=== PATIENT | male | born 1995 | race Hispanic/Latino ===

== ENCOUNTER 2019-07-04 19:16 | Emergency (ER) | payer BC, OTHER ==
[2019-07-04 20:56] LABS: Absolute Lymphocytes (CBC) 3.2 K/uL (0.7-4.9); Basophils % 0.3 % (0-1.3); Hematocrit 42.4 % (39.6-49.0); Lymphocytes % 33.8 % (15.3-44.8); MPV 9.9 fL (7.6-11.3); RBC Red Blood Cell Count 4.82 M/uL (4.33-5.43)
[2019-07-04 21:11] LABS: ALT/SGPT 143 U/L (12-78); AST/SGOT 65 U/L (15-37); Albumin 4.5 g/dL (3.4-5.0); Alkaline Phosphatase 80 U/L (45-117); BUN Blood Urea Nitrogen 10 mg/dL (7-18); Bicarbonate 29 mmol/L (21-32); Bilirubin Direct 0.2 mg/dL (0-0.2); Bilirubin Total 0.8 mg/dL (0.2-1.0); Glucose Level 79 mg/dL (74-106); Lipase 101 U/L (73-393); Potassium 3.3 mmol/L (3.5-5.1); Protein, Total 8.7 g/dL (6.4-8.2); Sodium Level 138 mmol/L (136-145)
[2019-07-04 21:55] LABS: Urine Blood NEGATIVE (NEG); Urine Glucose NEGATIVE (NEG); Urine Protein NEGATIVE (NEG)
--- NOTE | 2019-07-04 22:39 | EDPHYS ---
Physician Documentation [facility] Name: Deni Moon Age: 23 yrs Sex: Male : 1995 Arrival Date: 07/04/2019 Time: 19:19 Bed 15 Private MD: ED Physician Gamaliel Lorenz HPI: 07/04 20:41 This 23 yrs old Male presents to ER via Ambulatory with complaints of Right la1 side pain. 20:41 The patient complains of pain in the mid back area. The pain does not radiate. Onset: la1 The symptoms/episode began/occurred today. Modifying factors: The symptoms are alleviated by nothing. the symptoms are aggravated by nothing. Associated signs and symptoms: Pertinent negatives: diarrhea, fever, hematuria, nausea, vomiting. Severity of pain: At its worst the pain was moderate. The patient has not experienced similar symptoms in the past. Historical: - Allergies: 19:52 No Known Allergies; lp1 - Home Meds: 19:52 fenofibrate oral oral [Active]; lp1 - PMHx: 19:52 Hyperlipidemia; lp1 - PSHx: 19:52 None; lp1 - Immunization history:: Adult Immunizations up to date. - Social history:: Smoking status: Patient denies any tobacco usage or history of. - Ebola Screening: : No symptoms or risks identified at this time. ROS: 20:41 Constitutional: Negative for fever, chills, and weight loss, Eyes: Negative for injury, la1 pain, redness, and discharge, ENT: Negative for injury, pain, and discharge, Neck: Negative for injury, pain, and swelling, Cardiovascular: Negative for chest pain, palpitations, and edema, Respiratory: Negative for shortness of breath, cough, wheezing, and pleuritic chest pain. 20:41 Back: Negative for injury and pain, : Negative for injury, bleeding, discharge, and swelling, MS/Extremity: Negative for injury and deformity, Neuro: Negative for headache, weakness, numbness, tingling, and seizure, Endocrine: Negative for neck swelling, polydipsia, polyuria, polyphagia, and marked weight changes. 20:41 Abdomen/GI: Positive for flank pain'. Exam: 20:43 Constitutional: This is a well developed, well nourished patient who is awake, alert, la1 and in no acute distress. Head/Face: Normocephalic, atraumatic. Eyes: Periorbital areas with no swelling, redness, or edema. ENT: Mucous membranes moist. Neck: No Meningismus. Chest/axilla: Normal chest wall appearance and motion. Nontender with no deformity. No lesions are appreciated. Cardiovascular: Regular rate and rhythm with a normal S1 and S2. No gallops, murmurs, or rubs. Normal PMI, no JVD. No pulse deficits. Respiratory: Lungs have equal breath sounds bilaterally, clear to auscultation and percussion. Abdomen/GI: Soft, non-tender, with normal bowel sounds. No distension or tympany. No guarding or rebound. No evidence of tenderness throughout. 20:43 Skin: Warm, dry with normal turgor. Normal color with no rashes, no lesions, and no evidence of cellulitis. MS/ Extremity: Pulses equal, no cyanosis. Neurovascular intact. Full, normal range of motion. 20:43 Back: CVA tenderness, that is moderate, is noted on the right. Vital Signs: 19:52 BP 133 / 82; Pulse 73; Resp 18; Temp 98.4(O); Pulse Ox 99% on R/A; Weight 94.35 kg (R); lp1 Height 5 ft. 7 in. (170.18 cm); Pain 5/10; 22:50 BP 125 / 72; Pulse 60; Resp 18; Temp 98; Pulse Ox 99% ; ea 19:52 Body Mass Index 32.58 (94.35 kg, 170.18 cm) lp1 MDM: 20:19 Patient medically screened. la1 22:37 Data reviewed: vital signs, nurses notes, lab test result(s), radiologic studies, and la1 as a result, I will discharge patient. Data interpreted: Pulse oximetry: on room air is 99 %. Interpretation: normal. Test interpretation: by ED physician or midlevel provider:. Counseling: I had a detailed discussion with the patient and/or guardian regarding: the historical points, exam findings, and any diagnostic results supporting the discharge/admit diagnosis, lab results, radiology results, the need for outpatient follow up, a salesperson jewelry, to return to the emergency department if symptoms worsen or persist or if there are any questions or concerns that arise at home. Special discussion: Based on the history and exam findings, there is no indication for further emergent testing or inpatient evaluation. I discussed with the patient/guardian the need to see the salesperson jewelry for further evaluation of the symptoms. 07/04 20:29 Order name: Basic Metabolic Panel; Complete Time: 21:16 07/04 20:29 Order name: CBC with Diff; Complete Time: 21:16 07/04 20:29 Order name: Creatinine for Radiology; Complete Time: 21:16 07/04 20:29 Order name: Hepatic Function; Complete Time: 21:16 07/04 20:29 Order name: Lipase; Complete Time: 21:16 07/04 21:37 Order name: Urine Dipstick--Ancillary (enter results); Complete Time: 21:57 ar5 07/04 20:29 Order name: IV Saline Lock; Complete Time: 21:18 07/04 20:29 Order name: Labs collected and sent; Complete Time: 21:18 la07/04 20:29 Order name: CT Abd/Pelvis - IV Contrast Only 07/04 20:29 Order name: Urine Dipstick-Ancillary (obtain specimen); Complete Time: 21:19 la Administered Medications: No medications were administered Disposition: 07/05 09:24 Co-signature as Attending Physician, Gamaliel Lorenz MD I agree with the assessment and augustus plan of care. Disposition: 07/04/19 22:38 Discharged to Home. Impression: Abdominal and pelvic pain. - Condition is Stable. - Discharge Instructions: Abdominal Pain, Adult, Abdominal Pain, Adult, [id number]. - Work release form, Medication Reconciliation Form, Thank You Letter form. - Follow up: Private Physician; When: As needed; Reason: Recheck today's complaints, Re-evaluation by your physician. - Problem is new. - Symptoms are unchanged. Signatures: Dispatcher [employer] Gamaliel Rosenberg MD MD cha Pena, Laura, RN RN lp1 Choco Gomez, TAYLOR-C CABLE LAYER-Cla1 Violeta Farooq RN RN ea Corrections: (The following items were deleted from the chart) 07/04 23:09 22:38 07/04/2019 22:38 Discharged to Home. Impression: Abdominal and pelvic pain. ea Condition is Stable. Forms are Medication Reconciliation Form, Thank You Letter, Antibiotic Education, Prescription Opioid Use. Follow up: Private Physician; When: As needed; Reason: Recheck today's complaints, Re-evaluation by your physician. Problem is new. Symptoms are unchanged. la1
--- NOTE | 2019-07-04 22:39 | ER ---
Nurse's Notes [facility] Name: Deni Moon Age: 23 yrs Sex: Male : 1995 Arrival Date: 07/04/2019 Time: 19:19 Bed 15 Private MD: Diagnosis: Abdominal and pelvic pain Presentation: 07/04 19:50 Presenting complaint: Patient states: Pain to RUQ and RLQ that began after work today, lp1 consistent pain; Denies any nausea, vomiting, diarrhea. Transition of care: patient was not received from another setting of care. Onset of symptoms was July 04, 2019. Risk Assessment: Do you want to hurt yourself or someone else? Patient reports no desire to harm self or others. Initial Sepsis Screen: Does the patient meet any 2 criteria? No. Patient's initial sepsis screen is negative. Does the patient have a suspected source of infection? No. Patient's initial sepsis screen is negative. Care prior to arrival: None. 19:50 Method Of Arrival: Ambulatory lp1 19:50 Acuity: LEODAN 3 lp1 Historical: - Allergies: 19:52 No Known Allergies; lp1 - Home Meds: 19:52 fenofibrate oral oral [Active]; lp1 - PMHx: 19:52 Hyperlipidemia; lp1 - PSHx: 19:52 None; lp1 - Immunization history:: Adult Immunizations up to date. - Social history:: Smoking status: Patient denies any tobacco usage or history of. - Ebola Screening: : No symptoms or risks identified at this time. Screenin:53 Abuse screen: Denies threats or abuse. Denies injuries from another. Nutritional lp1 screening: No deficits noted. Tuberculosis screening: No symptoms or risk factors identified. Assessment: 21:29 General: Appears uncomfortable, Behavior is calm, cooperative, appropriate for age. ea Pain: Complains of pain in mid back area. Neuro: Level of Consciousness is awake, alert, obeys commands, Oriented to person, place, time. Cardiovascular: Patient's skin is warm and dry. Respiratory: Airway is patent Respiratory effort is even, unlabored, Respiratory pattern is regular, symmetrical. GI: Abdomen is non-distended. Derm: Skin is pink, warm \T\ dry. 22:58 Reassessment: Patient and/or family updated on plan of care and expected duration. Pain ea level reassessed. Patient is alert, oriented x 3, equal unlabored respirations, skin warm/dry/pink. Discharge instruction given to patient, verbalized the understanding of instruction. Pt left ED ambulatory accompanied by family. Vital Signs: 19:52 BP 133 / 82; Pulse 73; Resp 18; Temp 98.4(O); Pulse Ox 99% on R/A; Weight 94.35 kg (R); lp1 Height 5 ft. 7 in. (170.18 cm); Pain 5/10; 22:50 BP 125 / 72; Pulse 60; Resp 18; Temp 98; Pulse Ox 99% ; ea 19:52 Body Mass Index 32.58 (94.35 kg, 170.18 cm) lp1 ED Course: 19:19 Patient arrived in ED. cl3 19:51 Triage completed. lp1 19:52 Arm band placed on left wrist. lp1 20:19 Choco Gomez FNP-C [facility]. la1 20:19 Gamaliel Lorenz MD is Attending Physician. la1 20:46 Nasrin Mcmillan, LADY is Primary Nurse. ca1 21:30 Patient has correct armband on for positive identification. Bed in low position. Call ea light in reach. Side rails up X2. 21:56 CT Abd/Pelvis - IV Contrast Only In Process Unspecified. EDMS 23:07 No provider procedures requiring assistance completed. IV discontinued, intact, ea bleeding controlled, No redness/swelling at site. Pressure dressing applied. Administered Medications: No medications were administered Outcome: 22:38 Discharge ordered by . la1 23:07 Discharged to home ambulatory, with significant other. ea 23:07 Condition: stable 23:07 Discharge instructions given to patient, family, Instructed on discharge instructions, follow up and referral plans. Demonstrated understanding of instructions, follow-up care. 23:09 Patient left the ED. ea Signatures: Dispatcher [employer] EDMS Fariha Dempsey RN RN lp1 Choco Gomez FNP-C FNP-Cla1 Violeta Farooq RN RN ea Acob, Cheryl, RN RN ca1 Lewis, Charde cl3
[2019-07-04 23:13] VITALS: O2SAT 99
[2019-07-04 23:15] VITALS: BP 125/72; TEMP 98
--- NOTE | 2019-07-05 10:56 | RAD REPORT ---
EXAM DESCRIPTION: CT ABDOMEN AND PELVIS WITH CONTRAST CLINICAL HISTORY: ABD PAIN COMPARISON: None Available. TECHNIQUE: CT of the abdomen and pelvis performed following IV administration of iodinated contrast. FINDINGS: Lung Bases: The visualized lung bases are clear. Bones: No destructive bone lesions identified. Abdomen: Liver: The liver has normal size and decreased density. No intrahepatic biliary dilatation. Calcified hepatic granulomas. Gallbladder: No calcified gallstones. Spleen, Pancreas, and Adrenal Glands: Calcified splenic granulomas. The pancreas and adrenal glands are unremarkable. Kidneys: The kidneys have normal size without evidence of solid mass or hydronephrosis. Vasculature: The aorta and IVC have normal caliber and position. The portal vein is patent. The pro ximal visceral and renal arteries are patent. Stomach: The stomach and duodenum have normal course. Other: No free intraperitoneal air. No free fluid or lymphadenopathy. Pelvis: Bladder: Urinary bladder is unremarkable. Bowel: No dilated loops of large or small bowel. Appendix: Normal appendix. Pelvis: Prostate is not enlarged. IMPRESSION: 1. No acute inflammatory or obstructive process identified. 2. Hepatic steatosis. This exam was performed according to our departmental dose-optimization program, which includes autom ated exposure control, adjustment of the mA and/or kV according to patient size and/or use of iterati ve reconstruction technique. Electronically signed by: Mookie Guaman 07/04/2019 10:30 PM BIOMASS TECHNICIAN Due to temporary technical issues with the PACS/Fluency reporting system, reports are being signed by the in house radiologist as a courtesy to ensure prompt reporting. The interpreting radiologist is f ully responsible for the content of the report.
== END 2019-07-04 23:09 | disposition home or self-care (01) ==
LOC: ER 19:16
DX: R10.2 Pelvic and perineal pain (principal); E78.5 Hyperlipidemia, unspecified
CPT/HCPCS: 85025; 80048; 36415; 80076; 81003; 83690; 74177; 99283; Q9967